=== PATIENT | male | born 1955 | race Caucasian/White ===

== ENCOUNTER → 2016-06-26 | Outpatient (CLI) | payer OTHER ==
[~2016-06-26] MED LIST: BACTRIM DS 8001 TA1 PO; LOSARTAN POTASS25 M1 PO; SYNTHROID0.15 MG PO
== END | disposition home or self-care (01) ==
LOC: RAD 08:32
DX: M25.562 Pain in left knee (principal); M25.551 Pain in right hip; M25.571 Pain in right ankle and joints of right foot; M25.474 Effusion, right foot

== ENCOUNTER → 2016-09-27 | Outpatient (CLI) | payer OTHER ==
[2016-09-27 09:08] LABS: FREE T4 1.04 ng/dl (0.76-1.46); THYROID STIM HORMONE (HS) 0.584 uIU/ml (0.358-4.75)
== END | disposition home or self-care (01) ==
LOC: LAB 08:08
PROVIDERS: Internal Medicine
DX: E03.9 Hypothyroidism, unspecified (principal)

== ENCOUNTER → 2017-08-19 | Outpatient (CLI) | payer OTHER | END | disposition home or self-care (01) | LOC: CT 10:20 | DX: G44.89 Other headache syndrome (principal) ==

== ENCOUNTER → 2017-11-18 | Outpatient (CLI) | payer OTHER ==
[2017-11-18 09:25] LABS: CREATININE 1.05 mg/dL (0.70-1.30)
== END | disposition home or self-care (01) ==
LOC: LAB 08:56 → CT 10:00
PROVIDERS: Radiology Diagnostic Radiology
DX: R10.9 Unspecified abdominal pain (principal)

== ENCOUNTER → 2018-04-29 | Outpatient (CLI) | payer OTHER | END | disposition home or self-care (01) | LOC: CT 10:40 | DX: R10.31 Right lower quadrant pain (principal) ==

== ENCOUNTER 2018-09-11 08:30 | Emergency (ER) | payer OTHER ==
[~2018-09-11] VITALS: Ht 185.4 cm; Wt 100.7 kg
--- NOTE | ~2018-09-11 | EKG ---
[place], [place] ELECTROCARDIOGRAM REPORT NAME: SHERRY BEAR UNIT #: [id number] ROOM: DOCTOR: EPIPHANY DRAFT REPORT BIRTHDATE: [birth year] [facility] Test Date: 2018-09-11 Test Time: 09:12:23 Pat Name: SHERRY BEAR Department: Room: Gender: Fiber Worker: : 1955 Requested By: SHILOH SNYDER Order Number: [id number] Reading MD: Elana Burris MD Measurements Intervals Galt Rate: 80 P: 58 MN: 156 QRS: 19 QRSD: 84 T: 50 QT: 373 QTc: 431 Interpretive Statements Sinus rhythm Low voltage, precordial leads Electronically Signed On 09-11-2018 15:36:14 PDT by Elana Burris MD CM:EKGRPT:ELECTROCARDIOGRAM REPORT [id number] SHILOH BAEZ DRAFT REPORT SHILOH SNYDER DO
[2018-09-11 09:11] LABS: BASO # 0.1 10*3/uL (0.0-0.1); BASO % 1.4 % (0.0-1.0); EOS # 0.3 10*3/uL (0.0-0.4); HEMATOCRIT 44.9 % (42.0-52.0); HEMOGLOBIN 14.2 g/dl (14.0-18.0); LYMPH # 1.6 10*3/uL (1.3-4.4); LYMPH % 23.9 % (27.0-41.0); MEAN CELL VOLUME 96.6 fl (80.0-94.0); MEAN CORPUSCULAR HGB 30.5 pg (27.0-31.0); MEAN CORPUSCULAR HGB CONC 31.6 g/dl (33.0-37.0); MONO # 0.6 10*3/uL (0.1-1.0); MONO % 9.6 % (3.0-9.0); NEUT % 60.8 % (47.0-73.0); PLATELET COUNT AUTOMATED 246 10*3/uL (130-400); RED BLOOD COUNT 4.65 10*6/uL (4.50-5.90); RED CELL DISTRI WIDTH 12.3 % (0-14.5); WHITE BLOOD COUNT 6.5 10*3/uL (4.8-10.8)
[2018-09-11 09:33] LABS: PHOSPHOROUS 1.6 mg/dL (2.5-4.9)
[2018-09-11 09:35] LABS: ALBUMIN 3.6 gm/dl (3.1-4.5); BUN 11 mg/dl (7-24); CHLORIDE 108 mmol/L (98-107); POTASSIUM 3.9 mmol/L (3.5-5.1); SODIUM 138 mmol/L (136-145)
[2018-09-11 10:01] LABS: ALKALINE PHOSPHATASE 98 U/L (45-117); CREATININE 0.99 mg/dL (0.70-1.30); SGOT/AST 8 IU/L (3-35); SGPT/ALT 16 U/L (12-78); TOTAL PROTEIN 7.4 gm/dL (6.4-8.2)
[2018-09-11 10:15] LABS: TROPONIN I < 0.015 ng/ml (<0.045)
== END 2018-09-11 13:23 | disposition home or self-care (01) ==
LOC: ED 08:30
PROVIDERS: Internal Medicine
DX: R10.12 Left upper quadrant pain (principal); M54.2 Cervicalgia; R60.0 Localized edema; Z79.899 Other long term (current) drug therapy

== ENCOUNTER → 2018-11-11 | Outpatient (CLI) | payer OTHER | END | disposition home or self-care (01) | LOC: CT 07:38 | DX: R20.0 Anesthesia of skin (principal); R26.89 Other abnormalities of gait and mobility ==